=== PATIENT | female | born 1975 | race Caucasian/White ===

== ENCOUNTER → 2017-10-04 17:12 | Outpatient (CLI) | payer BC ==
[2012-10-18 12:37] VITALS: BMI 21.4
== END | disposition home or self-care (01) ==
LOC: D.MAMMO 11:15
DX: Z12.31 Encounter for screening mammogram for malignant neoplasm of breast (principal)

== ENCOUNTER → 2017-10-20 16:58 | Outpatient (CLI) | payer BC ==
[2012-10-18 12:37] VITALS: BMI 21.4
== END | disposition home or self-care (01) ==
LOC: D.MAMMO 15:00
DX: R92.8 Other abnormal and inconclusive findings on diagnostic imaging of breast (principal)

== ENCOUNTER → 2019-06-05 20:47 | Outpatient (CLI) | payer BC ==
[2012-10-18 12:37] VITALS: BMI 21.4
== END | disposition home or self-care (01) ==
LOC: D.MAMMO 09:45
PROVIDERS: ATTEND Nurse Practitioner Family
DX: Z12.31 Encounter for screening mammogram for malignant neoplasm of breast (principal)